=== PATIENT | female | born 1950 | race Caucasian/White ===

== ENCOUNTER → 2017-01-17 | Outpatient (CLI) | payer OTHER ==
[~2017-01-17] MED LIST: REGADENOSON 0.4 MG/5 ML DISP.SYRIN. IV ONE
--- NOTE | 2017-01-17 12:56 | PCVCIMAG ---
APPROVED REPORT Study performed: 01/17/2017 07:42:18 EXAM: Comprehensive 2D, Doppler, and color-flow Echocardiogram Patient Location: Echo lab Status: routine BSA: 1.86 HR: 71 bpmBP: 116/74 mmHg Rhythm: NSR Other Information Study Quality: Adequate Risk Factors: Cardiac Risk Factors: Hyperlipidemia Indications Palpitations Chest Pain 2D Dimensions LVEF(%): 63.59 (>50%) IVSd: 11.35 (7-11mm) LVDd: 42.99 mm PWd: 9.29 (7-11mm) LVDs: 28.26 (25-40mm) Left Atrium: 38.15 (27-40mm) Aortic Root: 30.44 mm LV Single Plane 4CH: 55.62 % LV Single Plane 2CH: 61.02 %Osborne's LVEF: 58.32 % Biplane EF: 59.2 % Volumes Left Atrial Volume (Systole) Single Plane 4CH: 57.31 mLSingle Plane 2CH: 51.19 mL LA ESV Index: 30.00 mL/m2 Aortic Valve AoV Peak Eduin.: 1.14 m/s AO Peak Gr.: 5.19 mmHgLVOT Max P.18 mmHg LVOT Max V: 1.02 m/s Mitral Valve E/A Ratio: 1.8 MV Decel. Time: 229.01 ms MV E Max Eduin.: 0.66 m/s MV A Eduin.: 0.36 m/s IVRT: 100.35 ms Pulmonary Valve PV Peak Eduin.: 0.95 m/sPV Peak Gr.: 3.61 mmHg Pulmonary Vein P Vein S: 0.35 m/sP Vein A: 0.40 m/s P Vein D: 0.45 m/sP Vein A Dur.: 114.2 msec P Vein S/D Ratio: 0.78 Tricuspid Valve TR Peak Eduin.: 2.68 m/s TR Peak Gr.: 28.65 mmHg Left Ventricle The left ventricle is normal size. There is normal LV segmental wall motion. There is normal left ventricular wall thickness. Left ventricular systolic function is normal. The left ventricular ejection fraction is within the normal range. LVEF is 60%. Grade I - abnormal relaxation pattern. Right Ventricle The right ventricle is normal size. The right ventricular systolic function is normal. Atria The left atrium size is normal. The right atrium size is normal. Aortic Valve The aortic valve is normal in structure. No aortic regurgitation is present. There is no aortic valvular stenosis. Mitral Valve The mitral valve is normal in structure. There is no mitral valve regurgitation noted. No evidence of mitral valve stenosis. Tricuspid Valve The tricuspid valve is normal in structure. Mild tricuspid regurgitation with PAP of 36 mmHg. Pulmonic Valve The pulmonary valve is normal in structure. Trace pulmonic regurgitation. Great Vessels The aortic root is normal in size. IVC is normal in size and collapses with >50% inspiration Pericardium There is no pericardial effusion. <Conclusion> The left ventricle is normal size. LVEF is 60%. The aortic valve is normal in structure. The mitral valve is normal in structure. The tricuspid valve is normal in structure. Mild tricuspid regurgitation with PAP of 36 mmHg. The pulmonary valve is normal in structure. Trace pulmonic regurgitation.
--- NOTE | 2017-01-18 16:47 | PCVCIMAG ---
APPROVED REPORT Exam: Nuclear Stress Test Indication: Afib, Lightheaded Patient Location: Out Patient Stress Nurse: Loreto Ramirez RN, Edel Mcdonnell RN [place] Tech:Otto Martines NMTCB Ht: 5 ft 7 in Wt: 165 lbs BSA: 1.86 m2 HR: 67 bpm BP: 178/81 mmHg BMI: 25.8 Rhythm: SR Medical History Medical History: Age, Hyperlipidemia, Afib Medications: Pradaxa, Simvastatin, Cymbalta, Nabumetone, Ritalin Allergies: Bactrim, eyedrops Pretest Chest Pain Characteristics: No chest pain Physical Disabilities: Knees NM EXAM: Myocardial Perfusion REST/STRESS Imaging Protocol: Rest Tc-99m/Stress Tc-99m 1 day Resting Data Rest SPECT myocardial perfusion imaging was performed in supine position 45 minutes following the intravenous injection of 11.1 mCi of Tc-99m Sestamibi. Time of rest injection: 0900 Date: 01/17/2017 Pharmacologic Stress Pharmacologic stress test was performed by injecting Regadenoson 0.4 mg IV push followed by the intravenous injection of 36 mCi of Tc-99m Sestamibi. Time of stress injection: 1015 Date: 01/17/2017 The images were gated to evaluate regional wall motion and calculate left ventricular ejection fraction. Study Data Post stress, the left ventricular ejection was 81%.. SSS: 7 SRS: 1 SDS: 6 TID = 0.76. Perfusion There is a medium area of moderately reduced uptake in the entire segment of the anterolateral wall which is seen on the stress images and normalizes on the resting images. This area thickens and moves normally and is most consistent with ischemia. Wall Motion Normal left ventricular wall motion. Nuclear Conclusion 1. INTERMEDIATE TO HIGH RISK STUDY Interpreted by: Lv Torres MD Electronically Approved: 01/18/2017 16:46:27 Stress Test Details Stress Test: Pharmacologic stress was paired with low level exercise. HR Resting HR: 67 bpmMax Heart Rate (APMHR): 155 bpm Max HR Achieved: 94 bpmTarget HR (85% APMHR): 131 bpm % of APMHR: 60 Recovery HR: 71 bpm BP Resting BP: 178/81 mmHg Max BP: 154/70 mmHg ECG Resting ECG: Sinus Rhythm Stress ECG: Sinus Rhythm Recovery ECG: Sinus Rhythm Clinical Reason for Termination: Completed protocol Stress Symptoms: Headache Exercise duration: 4.00 min sec Symptoms resolved with caffeine. Stress ECG Conclusion 1. ADEQUATE HEART RESPONSE TO IV LEXISCAN 2. INADEQUATE HEART RATE FOR ECG DIAGNOSIS <Conclusion> 1. ADEQUATE HEART RESPONSE TO IV LEXISCAN 2. INADEQUATE HEART RATE FOR ECG DIAGNOSIS
== END | disposition home or self-care (01) ==
LOC: PCVCIMAG 08:13
PROVIDERS: ATTEND Internal Medicine
DX: I07.1 Rheumatic tricuspid insufficiency (principal); I37.1 Nonrheumatic pulmonary valve insufficiency; R42 Dizziness and giddiness; I48.91 Unspecified atrial fibrillation; E78.5 Hyperlipidemia, unspecified; K52.9 Noninfective gastroenteritis and colitis, unspecified
CPT/HCPCS: 78452; 93017; 93306; A9500; J2785